=== PATIENT | male | born 1995 | race Caucasian/White ===

== ENCOUNTER 2024-08-10 23:51 | Emergency (ER) | payer MEDICAID ==
[~2024-08-10] VITALS: Ht 167.6 cm; Wt 81.0 kg
[2024-08-10 23:52] VITALS: O2SAT 99
[2024-08-10 23:57] VITALS: TEMP 36.6; O2SAT 98
[2024-08-11 00:40] VITALS: BP 115/74; PULSE 87; RESP 16
[2024-08-11] MEDS: KETOROLAC 15MG/ML VIAL IM ONE (00:40)
[2024-08-11] MEDS ORDERED: BO1 TP (01:15)
== END 2024-08-11 01:37 | disposition home or self-care (01) ==
LOC: ER 08-11 00:18
DX: T22.211A Burn of second degree of right forearm, initial encounter (principal); X58.XXXA Exposure to other specified factors, initial encounter; Y93.89 Activity, other specified; Y92.89 Other specified places as the place of occurrence of the external cause; Y99.8 Other external cause status
CPT/HCPCS: 99283; 96372; J1885